=== PATIENT | female | born 1980 | race African-American/Black ===

== ENCOUNTER 2017-05-07 16:16 | Inpatient (IN) | payer MEDICARE, MEDICAID ==
[~2017-05-07] VITALS: Ht 162.6 cm; Wt 109.9 kg
[~2017-05-07 16:16] MED LIST: BENZ1TAB10 PO; CHLO100T23 PO; CHLO100T24 PO; CLON.5 PO; DIVA500T52 PO; DIVA500T69 PO; METF500T4 PO; NAPR-58 PO; SERT50TA12 PO
[2017-05-07 16:35] VITALS: BP 126/87
[2017-05-07] MEDS ORDERED: ACETAMINOPHEN 325 MG TABLET PO PRN (16:45)
[2017-05-07] MEDS ORDERED: PROMETHAZINE HCL 25 MG TABLET PO PRN (16:45)
[2017-05-07] MEDS ORDERED: MAGNESIUM HYDROXIDE SUSPENSION 30 ML UDCUP PO PRN (16:45)
[2017-05-07] MEDS ORDERED: GuaiFENesin/D-METHORPHAN [SUGAR-FREE] 200-20MG/10 ML SYRUP UDCUP PO PRN (16:45)
[2017-05-07] MEDS ORDERED: MAG HYDROX/AL HYDROX/SIMETH ES 30 ML SUSPENSION UDCUP PO PRN (16:45)
[2017-05-07] MEDS ORDERED: ZOLPIDEM TARTRATE 10 MG TABLET PO PRN (16:45)
[2017-05-07] MEDS ORDERED: LOPERAMIDE HCL 2 MG CAPSULE PO PRN (16:45)
[2017-05-07] MEDS ORDERED: GLUCAGON,HUMAN RECOMBINANT 1 MG VIAL IM PRN (17:30)
[2017-05-07 18:00] VITALS: BP 116/70
[2017-05-07] MEDS: DIVALPROEX SODIUM 500 MG ER TABLET PO SCH (18:46)
[2017-05-07] MEDS: ClonazePAM 0.5 MG TABLET PO SCH (18:46)
[2017-05-07] MEDS: LORazepam 2 MG TABLET PO PRN (18:47)
[2017-05-07] MEDS: BENZTROPINE MESYLATE 1 MG TABLET PO SCH (18:47)
[2017-05-07] MEDS: THIAMINE HCL 100 MG TABLET PO SCH (18:52)
[2017-05-07 19:02] LABS: GLUCOMETER DEV NAME(LOC) BV3S 2; GLUCOSE,POINT OF CARE 160 MG/DL (70-110)
[2017-05-07] MEDS: ChlorproMAZINE HCL 100 MG TABLET PO SCH (21:07)
[2017-05-08] MEDS: MetFORMIN HCL 500 MG TABLET PO SCH ×2 (06:54→16:49)
[2017-05-08 06:57] LABS: GLUCOMETER DEV NAME(LOC) BV3S 2; GLUCOSE,POINT OF CARE 100 MG/DL (70-110)
[2017-05-08 07:11] VITALS: BP 125/72
[2017-05-08 08:28] VITALS: BP 119/61
[2017-05-08] MEDS ORDERED: SERTRALINE HCL 50 MG TABLET PO SCH (09:00)
[2017-05-08] MEDS: THIAMINE HCL 100 MG TABLET PO SCH ×2 (09:08→16:49)
[2017-05-08] MEDS: BENZTROPINE MESYLATE 1 MG TABLET PO SCH (09:08)
[2017-05-08] MEDS: ClonazePAM 0.5 MG TABLET PO SCH ×2 (09:08→16:49)
[2017-05-08] MEDS: FOLIC ACID 1 MG TABLET PO SCH (09:08)
[2017-05-08] MEDS: DIVALPROEX SODIUM 500 MG ER TABLET PO SCH ×2 (09:08→16:49)
[2017-05-08] MEDS: MULTIVITAMINS WITH MINERALS, THERAPEUTIC TABLET PO SCH (09:08)
[2017-05-08 16:08] VITALS: BP 110/71
[2017-05-08] MEDS: AMANTADINE HCL 100 MG CAPSULE PO SCH (16:48)
[2017-05-08 17:52] LABS: GLUCOMETER DEV NAME(LOC) BV3S 2; GLUCOSE,POINT OF CARE 120 MG/DL (70-110)
[2017-05-08] MEDS: ChlorproMAZINE HCL 100 MG TABLET PO SCH (20:51)
[2017-05-09] MEDS: MetFORMIN HCL 500 MG TABLET PO SCH ×2 (06:35→16:29)
[2017-05-09 06:38] VITALS: BP 112/72
[2017-05-09 08:27] VITALS: BP 107/57
[2017-05-09] MEDS: THIAMINE HCL 100 MG TABLET PO SCH ×2 (08:56→16:30)
[2017-05-09] MEDS: DIVALPROEX SODIUM 500 MG ER TABLET PO SCH ×2 (08:56→16:29)
[2017-05-09] MEDS: ClonazePAM 0.5 MG TABLET PO SCH ×2 (08:56→16:29)
[2017-05-09 08:58] LABS: BASOPHILS % (AUTO) 0.4 % (0.0-2.0); EOSINOPHILS % (AUTO) 2.7 % (1.0-6.0); HEMATOCRIT 35.4 % (36-46); LYMPHOCYTES # (AUTO) 2.9 K/uL (1.0-4.8); LYMPHOCYTES % (AUTO) 34.8 % (22.0-44.0); MEAN CORPUSCULAR HEMOGLOBIN 30.5 pg (26.0-34.0); MEAN CORPUSCULAR HGB CONC 33.9 G/dL (31.0-37.0); MEAN CORPUSCULAR VOLUME 90 fL (80-100); MONOCYTES # (AUTO) 0.5 K/uL (0.1-1.0); MONOCYTES % (AUTO) 5.9 % (2.0-9.0); NEUTROPHILS # (AUTO) 4.7 K/uL (1.8-7.7); NEUTROPHILS % (AUTO) 56.2 % (40.0-70.0); PLATELET COUNT (AUTO) 346 K/uL (150-450); RED BLOOD CELL COUNT(AUTO) 3.94 MIL/uL (4.00-5.20); RED CELL DISTRIBUTION WIDTH 13.6 % (11.5-14.5)
[2017-05-09] MEDS: AMANTADINE HCL 100 MG CAPSULE PO SCH ×3 (08:58→16:29)
[2017-05-09] MEDS: MULTIVITAMINS WITH MINERALS, THERAPEUTIC TABLET PO SCH (08:58)
[2017-05-09] MEDS: FOLIC ACID 1 MG TABLET PO SCH (08:58)
[2017-05-09] MEDS: SERTRALINE HCL 100 MG TABLET PO SCH (08:59)
[2017-05-09 09:43] LABS: ALANINE AMINOTRANSFERASE 29 U/L (12-78); ALBUMIN 3.5 g/dL (3.4-5.0); ALKALINE PHOSPHATASE 48 U/L (46-116); ANION GAP 11 mmol/L (8-16); ASPARTATE AMINOTRANSFERASE 18 U/L (15-37); BILIRUBIN,TOTAL 0.2 mg/dL (0.1-1.0); CALCIUM, TOTAL 8.9 mg/dL (8.8-10.5); CARBON DIOXIDE 26 mmol/L (22-29); CHLORIDE 102 mmol/L (98-107); CHOL/HDL RATIO 3.9 (3.9-5.7); CHOLESTEROL 173 mg/dL (131-200); CREATININE 0.75 mg/dL (0.60-1.30); FREE T4 (FREE THYROXINE) 0.71 ng/dL (0.76-1.46); GLOMERULAR FILTR. RATE CALC > 60 mL/min (>60); GLUCOSE,RANDOM 159 mg/dL (70-110); HCG,QUANTITATIVE < 1 mIU/mL (0-6); HDL CHOLESTEROL 44 mg/dL (40-60); LDL CHOL (CALC.) 102 mg/dL (0-130); POTASSIUM 3.6 mmol/L (3.5-5.1); SODIUM SERUM 139 mmol/L (136-145); THYROID STIMULATING HORMONE 2.21 uIU/mL (0.36-3.74); TOTAL PROTEIN, SERUM 7.7 g/dL (6.4-8.2); TRIGLYCERIDES 135 mg/dL (15-150); UREA NITROGEN, BLOOD 11 mg/dL (7-18); VALPROIC ACID 55 mcg/mL (50-100)
[2017-05-09 16:10] VITALS: BP 125/68
[2017-05-09 17:22] LABS: GLUCOMETER DEV NAME(LOC) BV3S 2; GLUCOSE,POINT OF CARE 99 MG/DL (70-110)
[2017-05-09 17:22] LABS: GLUCOMETER DEV NAME(LOC) BV3S 2; GLUCOSE,POINT OF CARE 114 MG/DL (70-110)
[2017-05-09] MEDS: ChlorproMAZINE HCL 100 MG TABLET PO SCH (20:34)
[2017-05-10 05:30] VITALS: BP 118/61
[2017-05-10] MEDS: MetFORMIN HCL 500 MG TABLET PO SCH ×2 (06:24→16:56)
[2017-05-10 06:28] LABS: GLUCOMETER DEV NAME(LOC) BV3S 2; GLUCOSE,POINT OF CARE 92 MG/DL (70-110)
[2017-05-10 08:32] VITALS: BP 134/85
[2017-05-10] MEDS: MULTIVITAMINS WITH MINERALS, THERAPEUTIC TABLET PO SCH (08:44)
[2017-05-10] MEDS: ClonazePAM 0.5 MG TABLET PO SCH ×2 (08:44→16:05)
[2017-05-10] MEDS: FOLIC ACID 1 MG TABLET PO SCH (08:44)
[2017-05-10] MEDS: DIVALPROEX SODIUM 500 MG ER TABLET PO SCH ×2 (08:44→16:05)
[2017-05-10] MEDS: SERTRALINE HCL 100 MG TABLET PO SCH (08:45)
[2017-05-10] MEDS: THIAMINE HCL 100 MG TABLET PO SCH ×2 (08:46→16:06)
[2017-05-10] MEDS: AMANTADINE HCL 100 MG CAPSULE PO SCH ×3 (09:00→16:55)
[2017-05-10 11:12] LABS: GLUCOMETER DEV NAME(LOC) BV3S 2; GLUCOSE,POINT OF CARE 78 MG/DL (70-110)
[2017-05-10] MEDS: ChlorproMAZINE HCL 100 MG TABLET PO PRN (16:05)
[2017-05-10] MEDS: HydrOXYzine PAMOATE 50 MG CAPSULE PO PRN (16:05)
[2017-05-10 18:03] VITALS: BP 122/70
[2017-05-10] MEDS: ChlorproMAZINE HCL 100 MG TABLET PO SCH (20:20)
[2017-05-10 20:47] LABS: GLUCOMETER DEV NAME(LOC) BV3S 2; GLUCOSE,POINT OF CARE 87 MG/DL (70-110)
[2017-05-11] MEDS: MetFORMIN HCL 500 MG TABLET PO SCH ×2 (06:37→16:56)
[2017-05-11 06:42] LABS: GLUCOMETER DEV NAME(LOC) BV3S 2; GLUCOSE,POINT OF CARE 89 MG/DL (70-110)
[2017-05-11 07:11] VITALS: BP 130/72
[2017-05-11] MEDS: HydrOXYzine PAMOATE 50 MG CAPSULE PO PRN (08:22)
[2017-05-11] MEDS: ClonazePAM 0.5 MG TABLET PO SCH ×2 (08:22→16:55)
[2017-05-11] MEDS: AMANTADINE HCL 100 MG CAPSULE PO SCH ×3 (08:22→16:56)
[2017-05-11] MEDS: ChlorproMAZINE HCL 100 MG TABLET PO PRN ×2 (08:22→13:22)
[2017-05-11] MEDS: DIVALPROEX SODIUM 500 MG ER TABLET PO SCH ×2 (08:22→16:55)
[2017-05-11] MEDS: FOLIC ACID 1 MG TABLET PO SCH (08:22)
[2017-05-11] MEDS: MULTIVITAMINS WITH MINERALS, THERAPEUTIC TABLET PO SCH (08:22)
[2017-05-11] MEDS: SERTRALINE HCL 100 MG TABLET PO SCH (08:23)
[2017-05-11] MEDS: THIAMINE HCL 100 MG TABLET PO SCH ×2 (08:23→16:56)
[2017-05-11 08:35] VITALS: BP 108/63
[2017-05-11] MEDS: LORazepam 2 MG TABLET PO PRN (13:22)
[2017-05-11 16:05] VITALS: BP 118/81
[2017-05-11 17:08] LABS: GLUCOMETER DEV NAME(LOC) BV3S 2; GLUCOSE,POINT OF CARE 160 MG/DL (70-110)
[2017-05-11] MEDS: INSULIN ASPART 100 UNITS/ML SQ PRN (17:12)
[2017-05-11] MEDS: ChlorproMAZINE HCL 100 MG TABLET PO SCH (20:21)
[2017-05-12 06:29] LABS: GLUCOMETER DEV NAME(LOC) BV3S 2; GLUCOSE,POINT OF CARE 97 MG/DL (70-110)
[2017-05-12] MEDS: MetFORMIN HCL 500 MG TABLET PO SCH ×2 (06:34→17:19)
[2017-05-12 08:37] VITALS: BP 142/80
[2017-05-12] MEDS: DIVALPROEX SODIUM 500 MG ER TABLET PO SCH ×2 (09:22→17:18)
[2017-05-12] MEDS: FOLIC ACID 1 MG TABLET PO SCH (09:22)
[2017-05-12] MEDS: ClonazePAM 0.5 MG TABLET PO SCH ×2 (09:22→17:19)
[2017-05-12] MEDS: MULTIVITAMINS WITH MINERALS, THERAPEUTIC TABLET PO SCH (09:22)
[2017-05-12] MEDS: SERTRALINE HCL 100 MG TABLET PO SCH (09:23)
[2017-05-12] MEDS: THIAMINE HCL 100 MG TABLET PO SCH ×2 (09:23→17:19)
[2017-05-12] MEDS: AMANTADINE HCL 100 MG CAPSULE PO SCH ×3 (09:23→17:19)
[2017-05-12] MEDS ORDERED: AMAN100C12 PO (13:41)
[2017-05-12] MEDS ORDERED: CLON.5 PO (13:41)
[2017-05-12] MEDS ORDERED: HALO100V4 IM (13:41)
[2017-05-12] MEDS ORDERED: DIVA500T52 PO (13:41)
[2017-05-12] MEDS ORDERED: SERT100T12 PO (13:41)
[2017-05-12] MEDS ORDERED: HALOPERIDOL LACTATE 5 MG/ML VIAL IM PRN (13:45)
[2017-05-12] MEDS ORDERED: HALOPERIDOL DECANOATE 100 MG/ML VIAL IM ONE (13:45)
[2017-05-12 17:38] VITALS: BP 119/66
[2017-05-12 17:58] LABS: GLUCOMETER DEV NAME(LOC) BV3S 2; GLUCOSE,POINT OF CARE 86 MG/DL (70-110)
[2017-05-13 05:27] VITALS: BP 120/70
[2017-05-13 06:23] LABS: GLUCOMETER DEV NAME(LOC) BV3S 2; GLUCOSE,POINT OF CARE 116 MG/DL (70-110)
[2017-05-13] MEDS: MetFORMIN HCL 500 MG TABLET PO SCH ×2 (06:32→16:45)
[2017-05-13] MEDS ORDERED: HALO100V4 IM (08:02)
[2017-05-13] MEDS ORDERED: AMAN100C12 PO (08:02)
[2017-05-13] MEDS ORDERED: METF500T4 PO (08:05)
[2017-05-13] MEDS: THIAMINE HCL 100 MG TABLET PO SCH ×2 (08:32→16:45)
[2017-05-13] MEDS: DIVALPROEX SODIUM 500 MG ER TABLET PO SCH ×2 (08:32→16:45)
[2017-05-13] MEDS: AMANTADINE HCL 100 MG CAPSULE PO SCH ×3 (08:32→16:45)
[2017-05-13] MEDS: MULTIVITAMINS WITH MINERALS, THERAPEUTIC TABLET PO SCH (08:32)
[2017-05-13] MEDS: SERTRALINE HCL 100 MG TABLET PO SCH (08:32)
[2017-05-13] MEDS: FOLIC ACID 1 MG TABLET PO SCH (08:32)
[2017-05-13] MEDS: ClonazePAM 0.5 MG TABLET PO SCH ×2 (08:32→16:45)
[2017-05-13 08:57] VITALS: BP 137/92
[2017-05-13] MEDS: LORazepam 2 MG TABLET PO PRN (14:36)
[2017-05-13 16:30] VITALS: BP 120/79
[2017-05-13 17:28] LABS: GLUCOMETER DEV NAME(LOC) BV3S 2; GLUCOSE,POINT OF CARE 94 MG/DL (70-110)
[2017-05-14] MEDS: LORazepam 2 MG TABLET PO PRN ×2 (02:57→17:18)
[2017-05-14] MEDS: MetFORMIN HCL 500 MG TABLET PO SCH ×2 (06:33→17:17)
[2017-05-14 06:34] LABS: GLUCOMETER DEV NAME(LOC) BV3S 2; GLUCOSE,POINT OF CARE 109 MG/DL (70-110)
[2017-05-14 07:02] VITALS: BP 102/70
[2017-05-14 08:22] VITALS: BP 141/71
[2017-05-14] MEDS: DIVALPROEX SODIUM 500 MG ER TABLET PO SCH ×2 (08:56→17:17)
[2017-05-14] MEDS: AMANTADINE HCL 100 MG CAPSULE PO SCH ×3 (08:56→17:18)
[2017-05-14] MEDS: MULTIVITAMINS WITH MINERALS, THERAPEUTIC TABLET PO SCH (08:56)
[2017-05-14] MEDS: FOLIC ACID 1 MG TABLET PO SCH (08:56)
[2017-05-14] MEDS: SERTRALINE HCL 100 MG TABLET PO SCH (08:56)
[2017-05-14] MEDS: ClonazePAM 0.5 MG TABLET PO SCH ×2 (08:56→17:17)
[2017-05-14] MEDS: THIAMINE HCL 100 MG TABLET PO SCH ×2 (08:56→17:18)
[2017-05-14 16:25] VITALS: BP 115/60
[2017-05-14 17:37] LABS: GLUCOMETER DEV NAME(LOC) BV3S 2; GLUCOSE,POINT OF CARE 92 MG/DL (70-110)
[2017-05-14] MEDS: HALOPERIDOL 10 MG TABLET PO SCH (20:56)
[2017-05-15 01:11] VITALS: BP 119/68
[2017-05-15 06:38] LABS: GLUCOMETER DEV NAME(LOC) BV2N3; GLUCOSE,POINT OF CARE 101 MG/DL (70-110)
[2017-05-15] MEDS: MetFORMIN HCL 500 MG TABLET PO SCH ×2 (07:07→16:44)
[2017-05-15 08:28] VITALS: BP 131/86
[2017-05-15] MEDS: MULTIVITAMINS WITH MINERALS, THERAPEUTIC TABLET PO SCH (09:18)
[2017-05-15] MEDS: SERTRALINE HCL 100 MG TABLET PO SCH (09:19)
[2017-05-15] MEDS: FOLIC ACID 1 MG TABLET PO SCH (09:19)
[2017-05-15] MEDS: THIAMINE HCL 100 MG TABLET PO SCH ×2 (09:19→16:44)
[2017-05-15] MEDS: AMANTADINE HCL 100 MG CAPSULE PO SCH ×3 (09:19→16:44)
[2017-05-15] MEDS: DIVALPROEX SODIUM 500 MG ER TABLET PO SCH ×2 (09:19→16:44)
[2017-05-15] MEDS: ClonazePAM 0.5 MG TABLET PO SCH ×2 (09:19→16:44)
[2017-05-15 10:54] VITALS: BP 145/78
[2017-05-15] MEDS ORDERED: HALO10 PO (14:52)
[2017-05-15] MEDS ORDERED: SERT100T12 PO (14:52)
[2017-05-15 16:05] VITALS: BP 124/100
[2017-05-15 16:43] LABS: GLUCOMETER DEV NAME(LOC) BV2N3; GLUCOSE,POINT OF CARE 144 MG/DL (70-110)
[2017-05-15] MEDS: INSULIN ASPART 100 UNITS/ML SQ PRN (17:02)
[2017-05-15 20:11] VITALS: BP 118/86
[2017-05-15] MEDS: HALOPERIDOL 10 MG TABLET PO SCH (20:16)
[2017-05-16 00:57] VITALS: BP 122/72
[2017-05-16] MEDS: LORazepam 2 MG TABLET PO PRN (03:30)
[2017-05-16 06:43] LABS: GLUCOMETER DEV NAME(LOC) BV2N3; GLUCOSE,POINT OF CARE 103 MG/DL (70-110)
[2017-05-16] MEDS: MetFORMIN HCL 500 MG TABLET PO SCH (07:08)
[2017-05-16 08:11] VITALS: BP 140/83
[2017-05-16] MEDS: FOLIC ACID 1 MG TABLET PO SCH (08:49)
[2017-05-16] MEDS: THIAMINE HCL 100 MG TABLET PO SCH (08:49)
[2017-05-16] MEDS: ClonazePAM 0.5 MG TABLET PO SCH (08:49)
[2017-05-16] MEDS: MULTIVITAMINS WITH MINERALS, THERAPEUTIC TABLET PO SCH (08:49)
[2017-05-16] MEDS: SERTRALINE HCL 100 MG TABLET PO SCH (08:49)
[2017-05-16] MEDS: DIVALPROEX SODIUM 500 MG ER TABLET PO SCH (08:49)
[2017-05-16] MEDS: AMANTADINE HCL 100 MG CAPSULE PO SCH ×2 (08:55→13:17)
[2017-05-16 11:47] LABS: GLUCOMETER DEV NAME(LOC) BV2N3; GLUCOSE,POINT OF CARE 102 MG/DL (70-110)
[2017-05-16 14:01] VITALS: BP 122/86
[2017-05-26] MEDS ORDERED: HALOPERIDOL DECANOATE 100 MG/ML VIAL IM SCH (09:00)
== END 2017-05-16 13:55 | disposition home or self-care (01) | DRG 881 ==
LOC: B3A 17:16 → B2S 05-14 21:35
PROVIDERS: ADMIT Psychiatry & Neurology Psychiatry; ATTEND Psychiatry & Neurology Psychiatry
DX: F32.9 Major depressive disorder, single episode, unspecified (principal); R45.851 Suicidal ideations; F25.9 Schizoaffective disorder, unspecified; Z68.41 Body mass index [BMI] 40.0-44.9, adult; E11.9 Type 2 diabetes mellitus without complications; E66.9 Obesity, unspecified; K21.9 Gastro-esophageal reflux disease without esophagitis; F17.200 Nicotine dependence, unspecified, uncomplicated; I10 Essential (primary) hypertension; G89.4 Chronic pain syndrome; K59.00 Constipation, unspecified; Z91.19 Patient's noncompliance with other medical treatment and regimen; Z81.8 Family history of other mental and behavioral disorders
CPT/HCPCS: 80342; 82962; 83036; 84439; 84443; 86592; J1631

== ENCOUNTER 2017-05-16 10:25 | Emergency (ER) | payer MEDICARE, OTHER ==
[~2017-05-16 10:25] MED LIST changes: +AMAN100C12 PO; -BENZ1TAB10 PO; -CHLO100T23 PO; -CHLO100T24 PO; -DIVA500T69 PO; +HALO10 PO; +HALO100V4 IM; -NAPR-58 PO; +SERT100T12 PO
[2017-05-16 10:38] VITALS: BP 130/75
== END 2017-05-16 12:54 | disposition home or self-care (01) ==
LOC: EMS 10:28
DX: S00.03XA Contusion of scalp, initial encounter (principal); F20.9 Schizophrenia, unspecified; F31.9 Bipolar disorder, unspecified; I10 Essential (primary) hypertension; F41.9 Anxiety disorder, unspecified; E11.9 Type 2 diabetes mellitus without complications; Z02.89 Encounter for other administrative examinations; W19.XXXA Unspecified fall, initial encounter; Y93.89 Activity, other specified; Y92.89 Other specified places as the place of occurrence of the external cause; Y99.8 Other external cause status
CPT/HCPCS: 70450; 99284

== ENCOUNTER 2017-05-19 10:00 | Inpatient (IN) | payer MEDICARE, MEDICAID ==
[~2017-05-19] VITALS: Ht 157.5 cm; Wt 106.6 kg
[~2017-05-19 10:00] MED LIST changes: -SERT50TA12 PO
[2017-05-19 14:41] VITALS: BP 134/88
[2017-05-19] MEDS ORDERED: ChlorproMAZINE HCL 100 MG TABLET PO PRN (14:45)
[2017-05-19] MEDS ORDERED: ACETAMINOPHEN 325 MG TABLET PO PRN (14:45)
[2017-05-19] MEDS ORDERED: MAG HYDROX/AL HYDROX/SIMETH ES 30 ML SUSPENSION UDCUP PO PRN (14:45)
[2017-05-19] MEDS ORDERED: LORazepam 2 MG TABLET PO PRN (14:45)
[2017-05-19] MEDS ORDERED: ZOLPIDEM TARTRATE 10 MG TABLET PO PRN (14:45)
[2017-05-19] MEDS ORDERED: LOPERAMIDE HCL 2 MG CAPSULE PO PRN (14:45)
[2017-05-19] MEDS ORDERED: GuaiFENesin/D-METHORPHAN [SUGAR-FREE] 200-20MG/10 ML SYRUP UDCUP PO PRN (14:45)
[2017-05-19] MEDS ORDERED: HydrOXYzine PAMOATE 50 MG CAPSULE PO PRN (14:45)
[2017-05-19] MEDS ORDERED: PROMETHAZINE HCL 25 MG TABLET PO PRN (14:45)
[2017-05-19] MEDS ORDERED: MAGNESIUM HYDROXIDE SUSPENSION 30 ML UDCUP PO PRN (14:45)
[2017-05-19 15:57] LABS: GLUCOMETER DEV NAME(LOC) BV2S; GLUCOSE,POINT OF CARE 107 MG/DL (70-110)
[2017-05-19] MEDS ORDERED: PNEUMOCOCCAL VACCINE POLYVALENT 0.5 ML VIAL [PPSV23] IM ONE (16:30)
[2017-05-19] MEDS ORDERED: INFLUENZA VIRUS VACCINE QVS 2017-18 (3YR+)/PF 60 MCG/0.5 ML SYRINGE IM ONE (16:30)
[2017-05-19] MEDS: THIAMINE HCL 100 MG TABLET PO SCH (16:34)
[2017-05-19] MEDS: ClonazePAM 0.5 MG TABLET PO SCH (16:34)
[2017-05-19] MEDS: AMANTADINE HCL 100 MG CAPSULE PO SCH (16:34)
[2017-05-19 17:30] VITALS: BP 138/76
[2017-05-19 20:28] LABS: GLUCOMETER DEV NAME(LOC) BV2S; GLUCOSE,POINT OF CARE 110 MG/DL (70-110)
[2017-05-19] MEDS: ChlorproMAZINE HCL 100 MG TABLET PO SCH (20:39)
[2017-05-19] MEDS: DIVALPROEX SODIUM 500 MG ER TABLET PO SCH (20:39)
[2017-05-20 04:49] VITALS: BP 133/87
[2017-05-20 06:43] LABS: GLUCOMETER DEV NAME(LOC) BV2S; GLUCOSE,POINT OF CARE 127 MG/DL (70-110)
[2017-05-20] MEDS ORDERED: MetFORMIN HCL 500 MG TABLET PO SCH (07:00)
[2017-05-20] MEDS: ClonazePAM 0.5 MG TABLET PO SCH ×2 (08:05→16:43)
[2017-05-20] MEDS: AMANTADINE HCL 100 MG CAPSULE PO SCH ×3 (08:05→16:42)
[2017-05-20] MEDS: THIAMINE HCL 100 MG TABLET PO SCH ×3 (08:08→16:43)
[2017-05-20] MEDS: MULTIVITAMINS WITH MINERALS, THERAPEUTIC TABLET PO SCH ×2 (08:08→09:40)
[2017-05-20] MEDS: FOLIC ACID 1 MG TABLET PO SCH ×2 (08:08→09:40)
[2017-05-20 08:19] VITALS: BP 137/90
[2017-05-20 08:22] LABS: BASOPHILS % (AUTO) 0.6 % (0.0-2.0); EOSINOPHILS % (AUTO) 1.1 % (1.0-6.0); LYMPHOCYTES # (AUTO) 2.5 K/uL (1.0-4.8); LYMPHOCYTES % (AUTO) 32.6 % (22.0-44.0); MEAN CORPUSCULAR HEMOGLOBIN 30.7 pg (26.0-34.0); MEAN CORPUSCULAR HGB CONC 34.3 G/dL (31.0-37.0); MEAN CORPUSCULAR VOLUME 90 fL (80-100); MONOCYTES # (AUTO) 0.6 K/uL (0.1-1.0); MONOCYTES % (AUTO) 8.3 % (2.0-9.0); NEUTROPHILS # (AUTO) 4.3 K/uL (1.8-7.7); NEUTROPHILS % (AUTO) 57.4 % (40.0-70.0); PLATELET COUNT (AUTO) 319 K/uL (150-450); RED BLOOD CELL COUNT(AUTO) 4.24 MIL/uL (4.00-5.20); RED CELL DISTRIBUTION WIDTH 13.7 % (11.5-14.5)
[2017-05-20 08:38] LABS: HEMOGLOBIN A1C 5.7 % (4.5-6.2)
[2017-05-20] MEDS ORDERED: SERTRALINE HCL 100 MG TABLET PO SCH (09:00)
[2017-05-20 09:08] LABS: ALANINE AMINOTRANSFERASE 58 U/L (12-78); ALBUMIN 3.8 g/dL (3.4-5.0); ALKALINE PHOSPHATASE 54 U/L (46-116); ANION GAP 12 mmol/L (8-16); ASPARTATE AMINOTRANSFERASE 31 U/L (15-37); BILIRUBIN,TOTAL 0.4 mg/dL (0.1-1.0); CARBON DIOXIDE 25 mmol/L (22-29); CHLORIDE 102 mmol/L (98-107); CHOLESTEROL 177 mg/dL (131-200); CREATININE 0.71 mg/dL (0.60-1.30); FREE T4 (FREE THYROXINE) 1.03 ng/dL (0.76-1.46); GLOMERULAR FILTR. RATE CALC > 60 mL/min (>60); GLUCOSE,RANDOM 110 mg/dL (70-110); HCG,QUANTITATIVE < 1 mIU/mL (0-6); HDL CHOLESTEROL 44 mg/dL (40-60); LDL CHOL (CALC.) 115 mg/dL (0-130); POTASSIUM 3.5 mmol/L (3.5-5.1); SODIUM SERUM 139 mmol/L (136-145); THYROID STIMULATING HORMONE 1.68 uIU/mL (0.36-3.74); TOTAL PROTEIN, SERUM 8.4 g/dL (6.4-8.2); TRIGLYCERIDES 92 mg/dL (15-150); UREA NITROGEN, BLOOD 11 mg/dL (7-18)
[2017-05-20 11:12] LABS: GLUCOMETER DEV NAME(LOC) BV2S; GLUCOSE,POINT OF CARE 104 MG/DL (70-110)
[2017-05-20 16:07] VITALS: BP 137/84
[2017-05-20 16:23] LABS: GLUCOMETER DEV NAME(LOC) BV2S; GLUCOSE,POINT OF CARE 90 MG/DL (70-110)
[2017-05-20] MEDS: MetFORMIN HCL 500 MG TABLET PO SCH (16:30)
[2017-05-20 20:38] LABS: GLUCOMETER DEV NAME(LOC) BV2S; GLUCOSE,POINT OF CARE 100 MG/DL (70-110)
[2017-05-20] MEDS: ChlorproMAZINE HCL 100 MG TABLET PO SCH (20:38)
[2017-05-20] MEDS: DIVALPROEX SODIUM 500 MG ER TABLET PO SCH (20:38)
[2017-05-21 00:14] VITALS: BP 131/79
[2017-05-21 06:23] LABS: GLUCOMETER DEV NAME(LOC) BV2S; GLUCOSE,POINT OF CARE 135 MG/DL (70-110)
[2017-05-21] MEDS: MetFORMIN HCL 500 MG TABLET PO SCH ×2 (06:36→16:30)
[2017-05-21] MEDS: AMANTADINE HCL 100 MG CAPSULE PO SCH ×3 (08:24→16:01)
[2017-05-21] MEDS: FOLIC ACID 1 MG TABLET PO SCH (08:24)
[2017-05-21] MEDS: MULTIVITAMINS WITH MINERALS, THERAPEUTIC TABLET PO SCH (08:24)
[2017-05-21] MEDS: SERTRALINE HCL 100 MG TABLET PO SCH (08:25)
[2017-05-21] MEDS: THIAMINE HCL 100 MG TABLET PO SCH ×2 (08:25→16:01)
[2017-05-21] MEDS: ClonazePAM 0.5 MG TABLET PO SCH ×2 (08:25→16:01)
[2017-05-21 09:09] VITALS: BP 122/75
[2017-05-21 11:12] LABS: GLUCOMETER DEV NAME(LOC) BV2S; GLUCOSE,POINT OF CARE 104 MG/DL (70-110)
[2017-05-21 16:00] VITALS: BP 152/97
[2017-05-21 17:18] LABS: GLUCOMETER DEV NAME(LOC) BV2S; GLUCOSE,POINT OF CARE 101 MG/DL (70-110)
[2017-05-21 17:30] VITALS: BP 136/76
[2017-05-21] MEDS: DIVALPROEX SODIUM 500 MG ER TABLET PO SCH (20:37)
[2017-05-21] MEDS: ChlorproMAZINE HCL 50 MG TABLET PO SCH (20:38)
[2017-05-21] MEDS: LISINOPRIL 10 MG TABLET PO SCH (20:38)
[2017-05-21 21:48] LABS: GLUCOMETER DEV NAME(LOC) BV2S; GLUCOSE,POINT OF CARE 107 MG/DL (70-110)
[2017-05-22 06:11] VITALS: BP 120/71
[2017-05-22] MEDS: MetFORMIN HCL 500 MG TABLET PO SCH ×2 (06:42→16:30)
[2017-05-22] MEDS: AMANTADINE HCL 100 MG CAPSULE PO SCH ×3 (08:16→16:32)
[2017-05-22] MEDS: MULTIVITAMINS WITH MINERALS, THERAPEUTIC TABLET PO SCH (08:16)
[2017-05-22] MEDS: THIAMINE HCL 100 MG TABLET PO SCH ×2 (08:16→16:31)
[2017-05-22] MEDS: ClonazePAM 0.5 MG TABLET PO SCH ×2 (08:16→16:32)
[2017-05-22] MEDS: SERTRALINE HCL 100 MG TABLET PO SCH (08:16)
[2017-05-22] MEDS: FOLIC ACID 1 MG TABLET PO SCH (08:16)
[2017-05-22] MEDS: LISINOPRIL 10 MG TABLET PO SCH (08:16)
[2017-05-22 08:26] VITALS: BP 118/67
[2017-05-22 11:07] LABS: GLUCOMETER DEV NAME(LOC) BV2S; GLUCOSE,POINT OF CARE 105 MG/DL (70-110)
[2017-05-22] MEDS ORDERED: SERT100T12 PO (13:55)
[2017-05-22] MEDS ORDERED: DIVA500T52 PO (13:55)
[2017-05-22] MEDS ORDERED: CHLO50 PO (13:55)
[2017-05-22] MEDS ORDERED: AMAN100C12 PO (13:55)
[2017-05-22] MEDS ORDERED: CLON.5 PO (13:55)
[2017-05-22] MEDS ORDERED: HALOPERIDOL DECANOATE 100 MG/ML VIAL IM ONE (14:00)
[2017-05-22 16:04] VITALS: BP 120/74
[2017-05-22 16:23] LABS: GLUCOMETER DEV NAME(LOC) BV2S; GLUCOSE,POINT OF CARE 117 MG/DL (70-110)
[2017-05-22 20:33] LABS: GLUCOMETER DEV NAME(LOC) BV2S; GLUCOSE,POINT OF CARE 102 MG/DL (70-110)
[2017-05-22] MEDS: DIVALPROEX SODIUM 500 MG ER TABLET PO SCH (20:33)
[2017-05-22] MEDS: ChlorproMAZINE HCL 50 MG TABLET PO SCH (20:34)
[2017-05-23] MEDS: MetFORMIN HCL 500 MG TABLET PO SCH (06:05)
[2017-05-23 06:11] VITALS: BP 131/84
[2017-05-23 07:13] LABS: GLUCOMETER DEV NAME(LOC) BV2S; GLUCOSE,POINT OF CARE 147 MG/DL (70-110)
[2017-05-23] MEDS: SERTRALINE HCL 100 MG TABLET PO SCH (08:15)
[2017-05-23] MEDS: ClonazePAM 0.5 MG TABLET PO SCH (08:15)
[2017-05-23] MEDS: MULTIVITAMINS WITH MINERALS, THERAPEUTIC TABLET PO SCH (08:15)
[2017-05-23] MEDS: FOLIC ACID 1 MG TABLET PO SCH (08:15)
[2017-05-23] MEDS: AMANTADINE HCL 100 MG CAPSULE PO SCH (08:15)
[2017-05-23] MEDS: LISINOPRIL 10 MG TABLET PO SCH (08:15)
[2017-05-23] MEDS: THIAMINE HCL 100 MG TABLET PO SCH (08:15)
[2017-05-23 08:26] VITALS: BP 133/77
[2017-05-23] MEDS ORDERED: METF500T4 PO (09:32)
[2017-05-23] MEDS ORDERED: LISI-661 PO (09:32)
[2017-06-05] MEDS ORDERED: HALOPERIDOL DECANOATE 100 MG/ML VIAL IM SCH (09:00)
== END 2017-05-23 10:15 | disposition home or self-care (01) | DRG 885 ==
LOC: B2X 14:35
PROVIDERS: ADMIT Psychiatry & Neurology Psychiatry; ATTEND Psychiatry & Neurology Psychiatry
PROC: 3E0234Z Introduction of Serum, Toxoid and Vaccine into Muscle, Percutaneous Approach (ICD-10-PCS; principal; 2017-05-20)
DX: F25.9 Schizoaffective disorder, unspecified (principal); Z68.41 Body mass index [BMI] 40.0-44.9, adult; R45.851 Suicidal ideations; B15.9 Hepatitis A without hepatic coma; E11.9 Type 2 diabetes mellitus without complications; F17.200 Nicotine dependence, unspecified, uncomplicated; E66.9 Obesity, unspecified; I10 Essential (primary) hypertension; N87.9 Dysplasia of cervix uteri, unspecified; G89.4 Chronic pain syndrome; K59.00 Constipation, unspecified; Z79.84 Long term (current) use of oral hypoglycemic drugs; Z91.19 Patient's noncompliance with other medical treatment and regimen; Z23 Encounter for immunization
CPT/HCPCS: 82962; 83036; 84439; 84443; 86592; 87081; 90471; J1631

== ENCOUNTER 2017-10-17 11:00 | Emergency (ER) | payer MEDICARE, OTHER ==
[~2017-10-17] VITALS: Ht 160 cm; Wt 106.4 kg
[~2017-10-17 11:00] MED LIST changes: +CHLO50 PO; -HALO10 PO; -HALO100V4 IM; +LISI-661 PO; -METF500T4 PO; +METF500T6 PO
[2017-10-17 12:04] LABS: GLUCOSE,POINT OF CARE 118 MG/DL (70-110)
[2017-10-17 15:07] VITALS: BP 127/81
== END 2017-10-17 15:05 | disposition home or self-care (01) ==
LOC: EMS 11:03
DX: L02.415 Cutaneous abscess of right lower limb (principal); B35.6 Tinea cruris; I10 Essential (primary) hypertension; E11.9 Type 2 diabetes mellitus without complications
CPT/HCPCS: 99283